=== PATIENT | female | born 1950 | race Caucasian/White ===

== ENCOUNTER → 2018-01-08 | Outpatient (CLI) | payer MEDICARE | LOC: GMAM 16:46 | PROVIDERS: ATTEND Family Medicine | DX: E03.9 Hypothyroidism, unspecified (principal) ==

== ENCOUNTER → 2019-03-25 | Outpatient (CLI) | payer MEDICARE ==
--- NOTE | 2019-03-25 16:52 | US ---
EXAM DESCRIPTION: Chest: ULTRASOUND. CLINICAL HISTORY: 68 years Female C50.811. Palpable masses right clavicle and right axilla. Bilateral breast cancer with double mastectomy and previous lymph node dissection COMPARISON: None Available. TECHNIQUE: Transcutaneous scanning: Jaramillo-scale and Doppler modes. FINDINGS: Scanning of the right upper chest near the right clavicle. Homogeneous hyperechoic mass below the skin with a hypoechoic nodule or cyst inferior lateral aspect. The mass measures 8.8 x 8.1 x 5.8 mm. The nodule or cyst measures approximately 4 mm long axis. Nonvascular. Palpable mass in the right axilla with mostly microlobulated and angulated margins has a bilobed configuration. Overall length is 3.5 cm. One lobe, more posterior, measures 2.3 x 1.1 cm and the second more anterior lobe measures 1.4 x 1.3 cm. Possible fluid collection abutting the more anterior lobe measures 14.8 x 6.8 x 5.3 mm. IMPRESSION: Abnormal appearing lymph nodes or hypoechoic masses palpable in the right axilla in a patient with history of bilateral breast cancer and bilateral mastectomy. Consider ultrasound-guided core needle biopsy of the right axillary mass. More echogenic mass with adjacent cyst or hypoechoic nodule component upper anterior subcutaneous tissue most likely benign but tissue sampling should be considered. Electronically signed by: Nadeem Bautista MD 03/25/2019 4:50 PM CDT
== END ==
LOC: US 12:42
PROVIDERS: ATTEND Surgery
DX: C50.811 Malignant neoplasm of overlapping sites of right female breast (principal); Z90.13 Acquired absence of bilateral breasts and nipples

== ENCOUNTER → 2019-03-26 | Outpatient (CLI) | payer MEDICARE ==
--- NOTE | 2019-03-26 20:44 | OP ---
DATE OF PROCEDURE: 03/26/19 PREOPERATIVE DIAGNOSIS: 1. Right axillary mass status post mastectomy and radiation therapy for multicentric carcinoma with prognosis axillary lymphadenopathy. POSTOPERATIVE DIAGNOSIS: 1. Right axillary mass status post mastectomy and radiation therapy for multicentric carcinoma with prognosis axillary lymphadenopathy. SURGICAL PROCEDURE: 1. Sonogram guided needle core biopsy right axillary mass. SURGEON: Devang Hein M.D. DUCT CLEANER: None. ANESTHESIA: Local infiltration 1% Lidocaine. 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 She then underwent radiation therapy and attempted reconstruction which failed. She had both neoadjuvant and adjuvant chemotherapy. She had not seen an oncologist for some time until she saw Dr. Ryan last week. She was brought to the Ultrasound Suite today for biopsy of this right axillary firm mass. FINDINGS AT TIME OF PROCEDURE: The ultrasound identified the mass that was identified on the previous ultrasound and 5 passes were made with the biopsy needle. DESCRIPTION OF PROCEDURE: The patient was brought to the Ultrasound Suite and placed in the supine position. The right arm was extended. The axilla was examined with the ultrasound probe and the lesion is identified. The chest wall medial to the probe is then prepped with Betadine paint and draped. Local infiltration of anesthesia was obtained with 1% Lidocaine and then the 25 gauge needle was introduced to the lesion and there was infiltration of the tissues between the skin and the lesion. At this point a stab wound is made with a #15 blade. The biopsy needle was then introduced and 5 passes were made through the mass. Specimens are sent for pathological evaluation. Hemostasis was obtained with pressure and a single #4-0 Prolene simple suture. Sterile dressing was applied. The patient tolerated the procedure well. Estimated blood loss was nil. #[id number] MTDD
--- NOTE | 2019-03-27 12:19 | US ---
EXAM DESCRIPTION: Biopsy/Needle Guidance: Ultrasound. CLINICAL HISTORY: 68 years Female RT BREAST CANCER COMPARISON: Diagnostic ultrasound of the right chest and axilla on March 25, 2019. TECHNIQUE: The procedure was performed by Dr. Hein. Repeat ultrasound localized axillary mass right breast.. Sterile preparation. Sterile ultrasound guidance during needle passes. No immediate complications. Procedure was well tolerated by the patient. FINDINGS: Irregular hypoechoic and isoechoic bilobed mass with angulated circumscribed and lobulated margins again noted right axilla on image prior to the procedure. 3.5 x 2.3 x 1.4 x 1.3 x 1.1 cm. Images during the procedure show the echogenic core biopsy needle well within the mass. IMPRESSION: Successful, ultrasound-guided core needle biopsy of right axillary mass. Adequate core samples were obtained. Pathology examination at remote facility, results pending. Electronically signed by: Nadeem Bautista MD 03/27/2019 12:18 PM CDT
== END ==
LOC: US 14:14
PROVIDERS: ATTEND Surgery
DX: C50.811 Malignant neoplasm of overlapping sites of right female breast (principal)

== ENCOUNTER → 2019-12-21 | Outpatient (CLI) | payer MEDICARE | LOC: LAB.O 09:48 | PROVIDERS: ATTEND Family Medicine | DX: E53.8 Deficiency of other specified B group vitamins (principal); I10 Essential (primary) hypertension; E11.9 Type 2 diabetes mellitus without complications; E03.9 Hypothyroidism, unspecified; L40.8 Other psoriasis ==

== ENCOUNTER → 2020-03-04 | Outpatient (CLI) | payer MEDICARE | LOC: BFHH 18:11 | PROVIDERS: ATTEND Family Medicine | DX: S01.01XD Laceration without foreign body of scalp, subsequent encounter (principal); S00.03XD Contusion of scalp, subsequent encounter ==

== ENCOUNTER → 2020-03-08 | Outpatient (CLI) | payer MEDICARE | LOC: BFHH 15:39 | PROVIDERS: ATTEND Family Medicine | DX: M79.81 Nontraumatic hematoma of soft tissue (principal) ==